=== PATIENT | male | born 1985 | race Caucasian/White ===

== ENCOUNTER 2017-12-12 05:09 | Emergency (ER) | payer BC ==
[2017-12-12] MEDS ORDERED: Ibuprofen 600 MG Tab PO ONE (05:29)
[2017-12-12] MEDS ORDERED: Hydrocortisone/Neomycin/Polymyxin B Otic Susp 10 ML Bottle EARRT STA (05:35)
[2017-12-12] MEDS ORDERED: Amoxicillin/Clavulanate K 875-125 MG Tab PO ONE (05:39)
--- NOTE | 2017-12-12 05:40 | EDM.PDOC ---
ED HPI GENERAL MEDICAL PROBLEM - General Chief Complaint: ENT Problem Stated Complaint: EAR PAIN Time Seen by Provider: 12/12/17 05:10 Source of Information: Reports: Patient History Limitations: Reports: No Limitations - History of Present Illness INITIAL COMMENTS - FREE TEXT/NARRATIVE: 32 y.o.w.m came this morning due to sudden onset of right ear pain. Pt is not sure if he is using an instrument to Clean his ears(?), no N/V/D or any other acute medical issues. BP 145/91 pulse 78 temp 36.8 pulseox 98% RR 18 Onset Date: 12/12/17 Onset Time: 01:00 Duration: Hour(s):, Getting Worse, Intermittent Location: Reports: Face Quality: Reports: Ache, Burning, Dull, Same as Previous Episode Severity: Moderate Improves with: Reports: Rest Worsens with: Reports: Movement Context: Reports: Other (using Q tips on right ear) Associated Symptoms: Reports: No Other Symptoms Rt ear Pain Score (Numeric/FACES): 10 - Related Data Allergies Allergy/AdvReac Type Severity Reaction Status Date / Time No Known Allergies Allergy Verified 12/12/17 05:21 Home Meds: Home Meds Amoxicillin/Potassium Clav [Augmentin 875-125 Tablet] 1 each PO BID #20 tablet 12/12/17 [Rx] Hydrocort/Neomycin/Polymyxin B [Cortisporin Otic Soln] 10 ml .XX Q8HR #1 bottle 12/12/17 [Rx] Past Medical History - Past Health History Medical/Surgical History: Denies Medical/Surgical History - Past Surgical History Other HEENT Surgeries/Procedures: WISDOM TEETH EXTRACTION Social & Family History - Family History Family Medical History: Noncontributory - Tobacco Use Smoking Status *Q: Current Every Day Smoker Years of Tobacco use: 15 Packs/Tins Daily: 0.5 Used Tobacco, but Quit: No - Caffeine Use Caffeine Use: Reports: Soda - Recreational Drug Use Recreational Drug Use: No ED ROS ENT - Review of Systems Review Of Systems: See Below Constitutional: Reports: No Symptoms HEENT: Reports: Ear Discharge, Ear Pain Respiratory: Reports: No Symptoms Cardiovascular: Reports: No Symptoms Endocrine: Reports: No Symptoms GI/Abdominal: Reports: No Symptoms : Reports: No Symptoms Musculoskeletal: Reports: No Symptoms Skin: Reports: No Symptoms Neurological: Reports: No Symptoms Psychiatric: Reports: No Symptoms Hematologic/Lymphatic: Reports: No Symptoms Immunologic: Reports: No Symptoms ED EXAM, ENT - Physical Exam Exam: See Below Exam Limited By: No Limitations General Appearance: Alert, WD/WN, Mild Distress Eye Exam: Bilateral Eye: Normal Inspection Ears: Auricular Tenderness, Canal Swelling, TM Bulging, TM Dullness, TM Erythema Nose: Normal Inspection, Normal Mucousa Mouth/Throat: Normal Inspection, Normal Gums, Normal Lips Head: Atraumatic, Normocephalic Neck: Normal Inspection, Supple, Non-Tender, Full Range of Motion Respiratory/Chest: No Respiratory Distress, Lungs Clear Cardiovascular: Normal Peripheral Pulses, Regular Rate, Rhythm, No Edema, No Gallop, No Rub GI/Abdominal: Normal Bowel Sounds, Soft, Non-Tender, No Organomegaly, No Distention, No Abnormal Bruit (Male) Exam: Deferred Rectal (Males) Exam: Deferred Back: Normal Inspection, Full Range of Motion Extremities: Normal Inspection, Normal Range of Motion, Non-Tender, No Pedal Edema Neurological: Alert, Oriented, CN II-XII Intact, Normal Cognition, Normal Gait, No Motor/Sensory Deficits Psychiatric: Normal Affect, Normal Mood Skin: Warm, Dry, Normal Color, Rash (OE OM right ear) Lymphatic: No Adenopathy Course - Vital Signs Text/Narrative:: 32 y.o.w.m came this morning due to sudden onset of right ear pain. Pt is not sure if he is using an instrument to Clean his ears(?), no N/V/D or any other acute medical issues. BP 145/91 pulse 78 temp 36.8 pulseox 98% RR 18 PE: WNWD W M with right Otitis media and otitis externa Impression: right Otitis media and otitis externa Tx: Cortisporne eardrops, Augmantin Reexam: Improved Plan: D/C with instructions Last Recorded V/S: Last Vital Signs Temp 36.6 C 12/12/17 06:06 Pulse 72 12/12/17 06:06 Resp 15 12/12/17 06:06 BP 134/90 12/12/17 06:06 Pulse Ox 100 12/12/17 06:06 - Orders/Labs/Meds Meds: Medications Discontinued Medications Generic Name Dose Route Start Last Admin Trade Name Freq PRN Reason Stop Dose Admin Amoxicillin/Clavulanate Potassium 1 tab 12/12/17 05:39 12/12/17 05:44 Augmentin 875 Mg/125 Mg PO 12/12/17 05:40 1 tab ONETIME ONE Administration Ibuprofen 600 mg 12/12/17 05:29 12/12/17 05:32 Motrin PO 12/12/17 05:30 600 mg ONETIME ONE Administration Neomycin/Polymyxin/Hydrocortisone 0.1 ml 12/12/17 05:35 12/12/17 05:57 Cortisporin Otic Susp EARRT 12/12/17 05:36 3 drop ONETIME STA Administration Departure - Departure Time of Disposition: 05:39 Disposition: Home, Self-Care 01 Condition: Good Clinical Impression: Otitis Qualifiers: Laterality: right Qualified Code(s): H66.91 - Otitis media, unspecified, right ear - Discharge Information Prescriptions: Hydrocort/Neomycin/Polymyxin B [Cortisporin Otic Soln] 10 ml .XX Q8HR #1 bottle Amoxicillin/Potassium Clav [Augmentin 875-125 Tablet] 1 each PO BID #20 tablet Instructions: Otitis Media, Adult, [id number] Referrals: Arnulfo Toussaint MD [Primary Care Provider] - Forms: ED Department Discharge Additional Instructions: Please take Motrin for pain, please apply cortisporin ear drops to right ear as recommended, please take Augmentin as recommended, please f/u, please come back if your symptoms get worse acutely.
[2017-12-12 06:06] VITALS: BP 134/90
== END 2017-12-12 06:06 | disposition home or self-care (01) ==
LOC: FB.ED 05:09
DX: H66.91 Otitis media, unspecified, right ear (principal); F17.210 Nicotine dependence, cigarettes, uncomplicated
CPT/HCPCS: 99282; A9270